=== PATIENT | female | born 1955 | race African-American/Black ===

== ENCOUNTER 2018-10-22 12:40 | Emergency (ER) | payer BC ==
[~2018-10-22] VITALS: Ht 165.1 cm; Wt 77.3 kg
[2018-10-22 12:53] VITALS: BP 127/65; PULSE 100; RESP 19; Ht 165.1 cm; Wt 77.3 kg
[2018-10-22] MEDS ORDERED: NAPR-985 PO (13:48)
--- NOTE | 2018-10-22 14:03 | ERD ---
ER Documentation Chief Complaint Chief Complaint LEFT ARM PAIN /INJURY HPI 63-year-old female presenting with pain to her right hand. Patient fell 10 weeks ago on concrete. At the time she did not have x-rays and had minimal pain however over time her pain is persisted and is mildly worsened. She describes it as a dull numbing pain. [id number]. Medical history is diabetes and hypertension. [id number]-[id number]. Has not taken medications for pain. Allergy to Tylenol 3. Surgical history is cholecystectomy. Social history denies ROS All systems reviewed and are negative except as per history of present illness. Medications Home Meds Active Scripts Naproxen* (Naprosyn*) 500 Mg Tablet, 500 MG PO BID PRN for PAIN AND/OR INFLAMMATION, #30 TAB Prov:PATIENCE ALBERTS PA-C 10/22/18 Allergies Allergies: Coded Allergies: No Known Allergies (Verified Allergy, Mild, 02/04/15) PMhx/Soc History of Surgery: Yes (Evelyn, tubal ligation) Anesthesia Reaction: No Hx Neurological Disorder: No Hx Respiratory Disorders: No Hx Cardiac Disorders: No Hx Alcohol Use: No Hx Substance Use: No Hx Tobacco Use: No Smoking Status: Never smoker FmHx Family History: No diabetes, No coronary disease, No other Physical Exam Vitals Vital Signs Date Temp Pulse Resp B/P (MAP) Pulse Ox O2 O2 Flow FiO2 Time Delivery Rate 10/22/18 97.8 100 19 127/65 95 12:53 (85) Physical Exam GENERAL: The patient is well-appearing, well-nourished, in no acute distress CHEST: Clear to auscultation bilaterally. There are no rales, wheezes or rhonchi. HEART: Regular rate and rhythm. No murmurs, clicks, rubs or gallops. EXTREMITIES: Mild tenderness palpation of her right hand with no obvious deformity. Pain is diffuse to the hand with no localization of pain. No snuffbox tenderness. NEUROLOGIC: Alert and oriented. Cranial nerves II through XII intact. Motor strength in all 4 extremities with 5 out of 5 strength. Sensation grossly intact. Normal speech and gait. SKIN: Healed abrasions noted to right hand and right wrist with mild scarring. No surrounding erythema Procedures/MDM DIAGNOSTIC IMAGING REPORT Patient: PETER VILLAREAL : 1955 Age: 63 Sex: F MR #: [id number] DOS: 10/22/18 1307 Ordering MD: ARASH ALBERTS PA-C Location: [facility] Room/Bed: PROCEDURE: XR Right Hand. CLINICAL INDICATION: Right hand pain TECHNIQUE: 3 views of the right hand were obtained. COMPARISON: No prior studies are available for comparison. FINDINGS: There is no acute fracture. There is a small chronic bone fragment at the tip of the ulnar styloid. Alignment is normal. Joint spaces are preserved. Soft tissues are grossly unremarkable. IMPRESSION: 1. No radiographic evidence of acute osseous abnormality. 2. Small chronic bone fragment at the tip of the ulnar styloid. DIAGNOSTIC IMAGING REPORT Patient: PETER VILLAREAL : 1955 Age: 63 Sex: F [id number] DOS: 10/22/18 1307 Ordering MD: ARASH ALBERTS PA-C Location: [facility] Room/Bed: PROCEDURE: XR Wrist. CLINICAL INDICATION: wrist pain TECHNIQUE: AP, lateral and oblique views of the right wrist were performed. COMPARISON: No prior studies are available for comparison. FINDINGS: Small, chronic-appearing ossific body adjacent to the ulnar styloid process. No acute appearing fracture or dislocation. Mild arthrosis of the thumb carpomet acarpal joint with joint space narrowing marginal osteophyte formation. No erosive changes. Mild soft tissue swelling. IMPRESSION: Mild soft tissue swelling without evidence of acute fracture. Small chronic-appearing ossific body adjacent to the ulnar styloid process, likely sequelae of old injury or accessory ossicle. 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 ER course: Velcro splint applied in ED. Neuro intact pre-and post splint application. MDM: 63-year-old female presenting with pain to the right wrist. I have low suspicion for acute fracture dislocation. I have low suspicion for neuro deficit. Patient is discharged with strict ER precautions and told to follow-up with primary care in 1 to 2 days for close evaluation. All questions answered at discharge Departure Diagnosis: Primary Impression: Right wrist pain Condition: Stable Patient Instructions: Fall, Mechanical Referrals: COMM[facility] YOU HAVE RECEIVED A MEDICAL SCREENING EXAM AND THE RESULTS INDICATE THAT YOU DO NOT HAVE A CONDITION THAT REQUIRES URGENT TREATMENT IN THE EMERGENCY DEPARTMENT. FURTHER EVALUATION AND TREATMENT OF YOUR CONDITION CAN WAIT UNTIL YOU ARE SEEN IN YOUR DOCTORS OFFICE WITHIN THE NEXT 1-2 DAYS. IT IS YOUR RESPONSIBILITY TO MAKE AN APPOINTMENT FOR FOLOW-UP CARE. IF YOU HAVE A PRIMARY DOCTOR --you should call your primary doctor and schedule an appointment IF YOU DO NOT HAVE A PRIMARY DOCTOR YOU CAN CALL OUR PHYSICIAN REFERRAL HOTLINE AT IF YOU CAN NOT AFFORD TO SEE A PHYSICIAN YOU CAN CHOSE FROM THE FOLLOWING [facility] [id number] [facility] [id number] [facility] [facility] [address] [facility] [address] [facility] [address] [facility] [facility]. [address] Additional Instructions: FOLLOW UP WITH YOUR PRIMARY CARE PHYSICIAN TOMORROW.Return to this facility if you are not improving as expected. PATIENCE ALBERTS PA-C Oct 22, 2018 14:03
== END 2018-10-22 13:27 | disposition home or self-care (01) ==
LOC: FTE 12:40
DX: M25.531 Pain in right wrist (principal)